=== PATIENT | female | born 1985 | race Caucasian/White ===

== ENCOUNTER → 2020-04-16 | Outpatient (CLI) | payer OTHER | LOC: LAB 08:34 | PROVIDERS: ATTEND Nurse Practitioner | DX: Z01.812 Encounter for preprocedural laboratory examination (principal); Z20.828 Contact with and (suspected) exposure to other viral communicable diseases ==

== ENCOUNTER → 2020-05-26 | Outpatient (CLI) | payer OTHER | LOC: LAB 14:44 | PROVIDERS: ATTEND Nurse Practitioner | DX: Z20.822 Contact with and (suspected) exposure to COVID-19 (principal) ==